=== PATIENT | female | born 1990 | race Caucasian/White ===

== ENCOUNTER 2024-08-02 09:41 | Outpatient (AMB) | payer OTHER, SELFPAY ==
--- NOTE | 2024-08-02 09:47 | A.OFFPC_ITS ---
Vital Signs 08/02/24 09:52 Height 5 ft 5 in Weight 157 lb 2 oz BMI 26.1 BP 94/60 Blood Pressure Location Lt brachial Position Sitting Respiration 16 Pulse 79 Pulse Source Pulse Oximeter Temp 97.9 F Temp Source Tympanic Pulse Oximetry (%) 96 Oxygen Delivery Method Room Air Intake Visit Reasons: PATIENT CARE ASSOCIATE general check Intake Note: establish care Allergies No Known Allergies Allergy (Verified 08/02/24 09:47) Medication List - Last Reconciled 08/02/24 by Jerry Hahn MD No Known Home Meds Tobacco use date assessed: 08/02/24 Dental Screening Dental Screen Date: 08/02/24 Did you have a dental visit in the last 12 months?: Yes Did you have a dental problem in the last 6 months where you did not have access to dental care?: No Was dental information given to patient?: Patient has dentist HPI PATIENT CARE ASSOCIATE general check HPI Details New Patient? ?? Prior PCP:?Dr Flynn [facility] Last office visit/CPE:?May Checkup. Jul 2023 Acute issue(s):? Concern of HLD & NT ProBNP ordered due to FamHx heart disease LE: Edema ?? PMHx:?HLD, IBS, Acid reflux, SurgHx:? FHx:? Mom: Leaky heart valve Arrythmia. Low BP. Dad: HTN, HLD, DE age 67. GM: Lung CA, Cervical CA. GF Alz SocHx:? Nonsmoker, EtOH: None. 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 1. Little interest or pleasure in doing things: not at all 2. Feeling down, depressed, or hopeless: not at all 3. Trouble falling or staying asleep, or sleeping too much: not at all 4. Feeling tired or having little energy: not at all 5. Poor appetite or overeating: not at all 6. Feeling bad about yourself - or that you are a failure or have let yourself or your family down: not at all 7. Trouble concentrating on things, such as reading the newspaper or watching television: not at all 8. Moving or speaking so slowly that other people could have noticed. Or the opposite - being so fidgety or restless that you have been moving around a lot more than usual: not at all 9. Thoughts that you would be better off or of hurting yourself in some way: not at all Total score: 0 Depression Screening Interpretation: Negative Depression Screening Done: Yes 35630 - PHQ-9 Billing: Yes Source: Developed by Drs. Jimmy Lou, Radha Ying, Philip Caban and colleagues, with an educational ryan from [email or web address] Thrive Questionnaire Date Thrive assessed: 08/02/24 I am a: Patient What is your living situation today?: I have a steady place to live Within the past 12 months, did the food you bought not last and you didn't have the money to get more?: Never true Within the past 12 months, did you worry whether your food would run out before you got money to buy more?: Never true Do you have trouble paying for medicines?: No Do you have trouble getting transportation to medical appointments?: No Do you have trouble paying your heating and electricity bill?: No Do you have trouble taking care of your child, family member or friend?: No Do you have trouble with day-to-day activities such as bathing, preparing meals, shopping, managing finances, etc.?: No Are you currently unemployed and looking for a job?: No Are you interested in more education?: No Please select the resources that you would like help with: None Currently or been in a relationship where the following occur: No concerns reported THRIVE Score: 0 AUDIT C Alcohol Use Questionnaire (AUDIT-C) 1. How often do you have a drink containing alcohol?: Never 3. How often do you have six or more drinks on one occasion?: Never Total Score: 0 ROOSEVELT-7 AMB Questionnaire ROOSEVELT-7 Date ROOSEVELT - 7 assessed: 08/02/24 Feeling nervous, anxious, or on edge: 0 = Not at all Not being able to stop or control worryin = Not at all Worrying too much about different things: 0 = Not at all Trouble relaxin = Not at all Being so restless that it is hard to sit still: 0 = Not at all Becoming easily annoyed or irritable: 0 = Not at all Feeling afraid as if something awful might happen: 0 = Not at all Total ROOSEVELT-7 score (0-4 normal; 5-9 mild; 10-14 moderate; 15-21 severe): 0 Source: Developed by Drs. Jimmy Lou, Radha Ying, Philip Caban and colleagues, with an educational ryan from [email or web address]. ROOSEVELT-7 Assessment Billing ROOSEVELT-7 Assessment Tool: ROOSEVELT-7 Assessment 82150 Review of Systems Const Denies chills, Denies fatigue, Denies fever(s), Denies headache(s) and Denies weakness ENT Denies dizziness and Denies headache(s) Card Denies chest pain, Denies lightheadedness, Denies dyspnea and Denies other (Palpitations) Resp Denies cough, Denies dyspnea, Denies wheezing and Denies other ( shortness of breath) Musc Denies numbness and Denies tingling Neuro Denies dizziness, Denies headache(s), Denies numbness, Denies tingling, Denies paresthesias and Denies weakness Psych Denies anxiety and Denies depression Endo Denies fatigue Aller/Immun Denies wheezing Physical exam (Primary Care) Vital Signs: Last Vital Signs Temp 97.9 F 08/02/24 09:52 Pulse 79 08/02/24 09:52 Resp 16 08/02/24 09:52 BP 94/60 08/02/24 09:52 Pulse Ox 96 08/02/24 09:52 Oxygen Delivery Method Room Air 08/02/24 09:52 BMI result Body Mass Index 26.1 Tobacco/Smoking Status: Tobacco use Status Tobacco use date assessed 08/02/24 08/02/24 09:49 Patient Tobacco Use Status Never used Tobacco 08/02/24 09:49 e-Cigarette/Vaping Use Never Used 08/02/24 09:49 PHQ-9: PHQ-9 Score PHQ-9: Total score 0 08/02/24 10:00 Depression Screening Interpretation: Negative Thrive Assessment: Date of Thrive Assessment Date Thrive assessed 08/02/24 08/02/24 09:52 Currently or been in a relationship where the following occur: No concerns reported Const General: no acute distress and well developed Nutritional Appearance: well nourished Orientation/consciousness: patient oriented x3 HENMT Head: Yes normocephalic and Yes atraumatic Eyes General: appearance normal, both eyes and all related structures Pupils: Equal, round and reactive pupils present EOM: EOMs intact bilaterally Resp Effort & Inspection: normal respiratory effort Auscultation: clear to auscultation bilaterally Cardio Rate: regular rate Rhythm: regular rhythm Heart sounds: S1 normal heart sound present, S2 normal heart sound present, no gallops, no murmurs and no rubs Neuro General: patient oriented x3 and gait normal Cranial nerves: Yes Equal, round and reactive pupils present Psych Affect: normal affect Assessment and Plan Assessment & Plan (1) High cholesterol: Code(s): E78.00 - Pure hypercholesterolemia, unspecified Plan: Patient?with?strong?family?history?of?coronary?artery?disease?and?valvular ?disease?as?well?as?history?of?hyperlipidemia. Check?labs EKG?shows: ?Normal?sinus?rhythm,?normal?axis,?normal?intervals,?no?hypertrophy,?no?ST-T-wav e?changes; normal?EKG (2) Family history of heart disease: Code(s): Z82.49 - Family history of ischemic heart disease and other diseases of the circulatory system Plan: As?above (3) Hemorrhoids: Code(s): K64.9 - Unspecified hemorrhoids Plan: Hydrate?well - keep?stools?soft Soluble?fiber (4) IBS (irritable bowel syndrome): Code(s): K58.9 - Irritable bowel syndrome without diarrhea Plan: Hydrate?well Soluble?fiber (5) GERD (gastroesophageal reflux disease): Code(s): K21.9 - Gastro-esophageal reflux disease without esophagitis Plan: Avoid?trigger?foods Can?use?omeprazole?if?frequent?symptoms (6) Laboratory exam ordered as part of routine general medical examination: Code(s): Z00.00 - Encounter for general adult medical examination without abnormal findings Plan: Check?lab Orders: Orders Comprehensive Parrott. Panel Fast Today Z00.00 - Encounter for general adult medical examination without abnormal findings Lipid Panel Today Z00.00 - Encounter for general adult medical examination without abnormal findings TSH reflex Free T4 Today Z00.00 - Encounter for general adult medical examination without abnormal findings UA and rflx microscopic Today Z00.00 - Encounter for general adult medical examination without abnormal findings Hepatitis B,C Profile Today Z11.3 - Encounter for screening for infections with a predominantly sexual mode of transmission NT-proBNP Today Z82.49 - Family history of ischemic heart disease and other diseases of the circulatory system AMB EKG-In Office Today E78.00 - Pure hypercholesterolemia, unspecified Microalbumin, Random (w Creat) Today I10 - Essential (primary) hypertension CT NG by PCR Today Z11.3 - Encounter for screening for infections with a predominantly sexual mode of transmission HIV Ab/Ag Today Z11.3 - Encounter for screening for infections with a predominantly sexual mode of transmission Syphilis Screen Today Z11.3 - Encounter for screening for infections with a predominantly sexual mode of transmission Coding Level of Care Code New Pt Level 3 (16159) Diagnoses High cholesterol E78.00 Family history of heart disease Z82.49 Hemorrhoids K64.9 IBS (irritable bowel syndrome) K58.9 GERD (gastroesophageal reflux disease) K21.9 Laboratory exam ordered as part of routine general medical examination Z00.00 Additional Codes ROOSEVELT-7 Assessment Billing - ROOSEVELT-7 Assessment Tool: ROOSEVELT-7 Assessment 34391 ([id number])
[2024-08-02 09:52] VITALS: BP 94/60; PULSE 79; RESP 16; TEMP 36.6; O2SAT 96; BMI 26.1
== END 2024-08-02 10:50 | disposition home or self-care (01) ==
PROVIDERS: PCP Family Medicine; Visit Provider Family Medicine
DX: E78.00 Pure hypercholesterolemia, unspecified (principal); Z82.49 Family history of ischemic heart disease and other diseases of the circulatory system; K64.9 Unspecified hemorrhoids; K58.9 Irritable bowel syndrome, unspecified; K21.9 Gastro-esophageal reflux disease without esophagitis
CPT/HCPCS: 99203

== ENCOUNTER → 2025-02-17 13:54 | Outpatient (BNVA) | payer OTHER, SELFPAY | PROVIDERS: PCP Family Medicine; Visit Provider Physician Assistant Medical | DX: Z77.21 Contact with and (suspected) exposure to potentially hazardous body fluids (principal) | CPT/HCPCS: 84450; 84460; 86706; 86803; 87389; 99203 ==

== ENCOUNTER 2025-03-14 08:45 | Outpatient (REF) | payer OTHER, SELFPAY ==
--- OUTSIDE RECORDS SUMMARY | 2025-03-14 08:52 | XMS_ITS ---
Author Organization [facility] Address [address], [place] [id number] Care Team Providers Care Sr. Manager Corporate Communications Name Role Phone BRIDGETTE CHARLES Primary Care Provider [phone] Veena De Santiago Unavailable [phone] ALLERGIES No Known Allergies REASON FOR REFERRAL Reason [facility] GI for ongo ing IBS and oily stools. Diagnosis 1 Irritable bowel synd maxwell with both constipation and diarrhea (K58.2) Diagnosis 2 Abnormal stools (R19 .5) Referral Organization [facility] Referring Provider First Name Veena Referring Provider Last Name Jonnathan Referring Provider Speciality Nurse Prac titioner Referred Organization [facility] Referred Address [address], [id number], Referred Provider Specialty Gastroentero logy General Notes MARIA TERESA CAMPBELL 07/2024 04:10:06 PM >BMP Form, Referral, OV Note and insurance information faxed to [facility] [phone]. Referral Priority Routine REASON FOR VISIT F/U OILY STOOLS MEDICATIONS Medication SIG (Take, Route, Frequency, Duration) Notes Start Date End Date Status Pimecrolimus 1 % 1 application [employer] Salesperson ally Twice a day Active Htu-Wo-Yfonpttp 0.18/0.215/0.25 MG-25 MCG 1 tablet Orally Once a day Active Vitamin D3 1.25 MG (73949 UT) 1 capsule Orally 1/wk Active Minoxidil for Men 5 % 1 mL Externally Tw ice a day Active Ashwagandha Active SOCIAL HISTORY Tobacco Use: Social History Observation Description Date Details (start date - stop date) Never Smoker NA - NA Sex Assigned At : Social History Observation Description Sex Assigned At Female Household Question Answer Notes Marital status: Tobacco Use/Smoking Question Answer Notes Tobacco use: nonsmoker Sexual History Question Answer Notes Had sex in the past 12 months (vaginal, oral, or anal)? Yes with Men only Use protection? No Section Notes: She enjoys aleah, hiking, a nd going for walks VITAL SIGNS Blood pressure systolic 102 mm Hg 03/27/20 24 Blood pressure diastolic 62 mm Hg 024 Heart Rate 72 /min 03/27/2024 Height 65 in 03/27/2024 Weight 158.2 lbs 03/27/2024 BMI 26.32 kg/m2 03/27/2024 Oximetry 98 % 03/27/2024 Height-cm 165.1 cm 03/27/2024 Weight-kg 71.76 kg 03/27/2024 Encounters Encounter [facility] Date [facility] [address] [place], [place] [address]R[place]y [place], [place] [id number] 03/27/2024 Veena De Santiago Irritable bowel syndrome with both constipation and diarrhea K58.2 and Abnormal stools R19.5 ASSESSMENTS Encounter Date Diagnosis Assessment Notes Treatment Notes Treatment Clinical Notes Section Notes 03/27/2024 Irritable bowel syndrome with both constipation and diarrhea (ICD-10 - K58.2) Keep diary of events to try to pinpoint possible triggers 03/27/2024 Abnormal stools (ICD-10 - R19.5) Pre-ProBiotic Increase fiber- take Psyllium Fiber supplements Keep diary of abnormal stools and possible triggers Will refer to GI given long standing history Jahaira will be transitioning to a [facility] PCP office in July due to the office changing their model at this time 03/27/2024 Other Total time spen t with patient 20 minutes which includes face to face visit, education and coordination of care. PLAN OF TREATMENT Treatment Notes Assessment Notes Irritable bowel syndrome wit h both constipation and diarrhea Keep diary of events to try to pinpoint possible triggers Abnormal stools Pre-ProBiotic Increase fiber- take Psyllium Fiber supplements Keep diary of abnormal stools and possible triggers Will refer to GI given long standing history Jahaira will be transitioning to a [facility] PCP office in July due to the office changing their model at this time Other Total time spent wit h patient 20 minutes which includes face to face visit, education and coordination of care. Referrals Referral Date Details [facility] GI for ongo ing IBS and oily stools. , [address] [place], [place] [address]ANG[place]A [place], [phone], [email or web address], Next Appt Details Follow Up: --, Reason: New P CP in July Progress Notes * JAHAIRA FAIRBANKSDOB: [birth year] (33 yo F)Acc No.[id number]:03/27/2024 Progress Notes Patient:??JAHAIRA FAIRBANKS Provider:??Veena De Santiago DNP :1990?Age:33 Y?Sex:Fe male Date:03/27/2024 Phone: Address:[address] [place] [phone] Pcp:BRDIGETTE CHARLES Subjective: * Chief Complaints: * ?F/U OILY STOOLS * HPI: ?Patient Care Team:? Providers- Secretarial Teacher- Jahaira Thayerld ?GYNO - Dr Hart. ?Visit info:? Jahaira presents today c/o oily stools - started in January and would present randomly with BM. No issues this past week. She had been taking supplements with increased Biotin, had increased consumption of nuts but no other real changes with diet. She changed the supplement about 2 wks ago to Viviscol BID. ?She does note history of oily stools in past, but would usually only occur with fatty foods, chicken skin, etc. This occurrance was not the norm and lasted for a longer duration. ?She notes that she does have an extensive history of IBS- never had a colonoscopy. She states that she has had increased stress lately, that may be contributing. Liver enzyme labs within range- denies significant abdominal pain, nausea, or heartburn. * ROS:?Reviewed. * Medical History:?? * Telephonic Nurse History:??Menstrual hist ory:??LMP:??03/13/2024,?Age of Menarche:??12.??Sexually Transmitted Diseases (STDs)??Human papilloma virus (HPV)/condyloma.??Last pap smear date??Oct 2022.??Abnormal pap smear??Oct 2022 HPV.??Last mammogram date??Had one at 16 yo, lump in breast, neg per pt.?? * OB History:?? Histo ry:??Total pregnancies:??0.?? * Surgical History:??[place] [facility] * Hospitalization/Major Diagno stic Procedure:?? * Family History:??Father: dec eased 67 yrs, hypertension, hyperlipidemia, heart attack , depression, alcoholism, sudden cardiac .??Mother: alive, osteoporosis, depression.??Paternal Grandfather: 71 yrs, Alzheimer's dementia.??Paternal Grandmother: 69 yrs, mac -1 blood disease, diagnosed with Type 2 diabetes mellitus without complication, unspecified whether senior living insulin use.??Maternal Grandfather: 98 yrs, hypertension, kidney stones.??Maternal Grandmother: 70 yrs, lung cancer , cervical cancer.??Brother: alive.??1 brother(s) - healthy. .?? * Social History:?Tobacco Use:??Tobacco Use/Smoking??Tobacco use:??nonsmoker.?Sexual History:??Sexual History??Had sex in the past 12 months (vaginal, oral, or anal)???Yes,??with??Men only,??Use protection???No.?Drugs/Alcohol:??Drugs??Have you used drugs other than those for medical reasons in the past 12 months???No.??Do you smoke marijuana?: Denies. Do you drink alcohol?: No. ?Household:??Household??Marital status:??,??Any household pets???Yes.?Miscellaneous:??Exercise: three times a week, for 30-60 minutes a day. 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 ?She enjoys aleah, hiking, and going for walks. * [facility]ations:[facility] 1.25 MG (47262 UT) Capsule 1 capsule Orally , Notes to Pharmacist: 1/wkMinoxidil for Men 5 % Solution 1 mL Externally Twice a day Pimecrolimus 1 % Cream 1 application Externally Twice a day Yfk-Lg-Bpxwwbdi 0.18/0.215/0.25 MG-25 MCG Tablet 1 tablet Orally Once a day Medication List reviewed and reconciled with the patientTaking Nichole Taking Vitamin D3 1.25 MG (39393 UT) Capsule 1 capsule Orally , Notes to Pharmacist: 1/wkTaking Minoxidil for Men 5 % Solution 1 mL Externally Twice a day Taking Pimecrolimus 1 % Cream 1 application Externally Twice a day Taking Yuz-Ly-Fbvorofk 0.18/0.215/0.25 MG-25 MCG Tablet 1 tablet Orally Once a day Medication List reviewed and reconciled with the patient * Allergies:??N.K.D.A.no[Aller gies Verified] Objective: * Vitals:??BP:102/62mm Hg, HR: 72/min, Oxygen sat %:98%, Wt:158.2lbs, Wt-k.76 kg, Ht: 65 in, Ht-cm: 165.1 cm, BMI:26.32Index, Body Surface Area: 1.81. * Examination: ?General Examination: ?General appearance: no acute distress, speaking full sentences, thoughts clear and appropriate. ? Head: normocephalic, atraumatic. ? Eyes: sclera anicteric. ? Oral cavity: with good dentition, tongue is midline. ? Lungs: non-labored breathing, no audible shortness of breath or wheezing. ? Neurologic: alert and oriented, cooperative with exam. ? Psych: with good judgement and insight, speech is clear and coherent, normal affect / mood. Assessment: * Assessment: 1.??Irritable bowel syndrome with both constipation and diarrhea - K58.2 (Primary)??2.??Abnormal stools - R19.5?? Plan: * Treatment: 2.??Abnormal stools?? Notes: Pre-ProBiotic Increase fiber- take Psyllium Fiber supplements Keep diary of abnormal stools and possible triggers Will refer to GI given long standing history Jahaira will be transitioning to a [facility] PCP office in July due to the office changing their model at this time? Referral To:Gastroenterology ?Reason:[facility] GI for ongoing IBS and oily stools. 3.??Others?? Notes: Total time spent with patient 20 minutes which includes face to face visit, education and coordination of care.? * Procedure Codes:?? * Preventive Medicine:?Last - 2019; 01/27/23 @ [facility] Colonoscopy- nvr Endo- nvr Covid vac- yes Flu shot- no 01/21/23: Vitamin D 14; insulin 6.7; glucose 84; Tcol 232; HDL 50; LDL 157; trigs 54; APO B 116 05/05/23: Vitamin D 97; glucose 68; Tcol 166; HDL 56; LDL 94; trigs 71; APO B 86; NTPROBNP 168; hsCRP 2.1. * Follow Up:??-- (Reason: New PCP in July) * Billing Information: * Visit Code:?? 88491 Office Visit, Est Pt., Level 3. * Procedure Codes:?? * Sign off status: Completed true * Provider:??Veena De Santigao DNP Date:??06/2024 History and Physical Notes * HPI (History of Present Illness) Category Sub-Category Detail Notes Category Not es Patient Care Team Providers- Secretarial Teacher- Jahaira Osullivan [facility] GYNO - Dr Hart Examination Category Sub-Category Detail Notes Category Not es General Examination General appearance: no acute distress, speaking full sentences, thoughts clear and appropriate. Head: normocephalic, atraumatic. Eyes: sclera anicteric. Oral cavity: with good dentition, tongue is midline. Lungs: non-labored breathing, no audible shortness of breath or wheezing. Neurologic: alert and oriented, cooperative with exam. Psych: with good judgement and insight, speech is clear and coherent, normal affect / mood. Consultation Request Notes Referral Date Referring Provider Referred Provider Not es 03/27/2024 Veena De Santiago [facility] f or ongoing IBS and oily stools.
--- OUTSIDE RECORDS SUMMARY | 2025-03-14 08:52 | XMS_ITS ---
Author Organization [facility] Address [address], [place] [phone] Care Team Providers Care Sharepoint Application Developer Name Role Phone BRIDGETTE CHARLES Primary Care Provider Veena De Santiago [phone] REASON FOR VISIT CPE SOCIAL HISTORY Sex Assigned At : Social History Observation Description Sex Assigned At Female Encounters Encounter Location Date Provider Diagnosis [facility] [address], [place] [phone] 06/06/2024 Veena De Santiago PLAN OF TREATMENT No Information Progress Notes * TIKI, AMTEVINDOB: [birth year] (34 yo F)Acc No.[id number]:06/06/2024 Progress Note Patient:??TIKI JAHAIRA Provider:??Veena De Santiago DNP :1990?Age:33 Y?Sex:Fe male Date:06/06/2024 Phone: Address:[address] [place] [phone] Pcp:BRIDGETTE CHARLES Subjective: * Chief Complaints: * ?1. CPE. * Medical History:?? Objective: Assessment: Plan: * Treatment: Care Plan: * Problems:?? * Billing Information: * Visit Code:?? * Procedure Codes:?? * Sign off status: Pending * Provider:??Veena De Santiago DNP Date:??
--- OUTSIDE RECORDS SUMMARY | 2025-03-14 08:52 | XMS_ITS ---
Author Organization [facility] Address [address] [place] [phone] Care Team Providers Care Culvert Installer Name Role Phone BRIDGETTE CHARLES Primary Care Provider [phone] Veena De Santiago [phone] ALLERGIES No Known Allergies REASON FOR VISIT CPE SOCIAL HISTORY Tobacco Use: Social History Observation [...] aleah, hiking, a nd going for walks Encounters Encounter Location Date Provider Diagnosis [address] [id number] 01/23/2024 Veena De Santiago PLAN OF TREATMENT No Information Progress Notes * JAHAIRA FAIRBANKSDOB: [birth year] (34 yo F)Acc No.[id number]:01/23/2024 Progress Note Patient:??TIKIMARIA DJAHAIRA Provider:??Veena De Santiago DNP :1990?Age:33 Y?Sex:Fe male Date:01/23/2024 Phone: Address:[address] [place] [id number] Pcp:BRIDGETTE CHARLES Subjective: * Chief Complaints: * ?1. CPE. * HPI: ?Patient Care Team:? Providers- Cigarette Machine Operator- Jahaira Osullivan [place] ?GYNO - Dr Hart. * Medical History:??Anxiety, D epression, HPV, Periooral dermatitis, Gastroesophageal reflux disease, Irritable bowel syndrome. * Lab Rep History:??Menstrual hist ory:??LMP:??11/22/2023,?Age of Menarche:??12.??Sexually Transmitted Diseases (STDs)??Human papilloma virus (HPV)/condyloma.??Last pap smear date??Oct 2022.??Abnormal pap smear??Oct 2022 HPV.??Last mammogram date??Had one at 16 yo, lump in breast, neg per pt.?? * OB History:?? Histo ry:??Total pregnancies:??0.?? * Surgical History:??[place] [facility] . * Hospitalization/Major Diagno stic Procedure:??Denies Past Hospitalization. * Family History:??Father: dec eased 67 yrs, hypertension, hyperlipidemia, heart attack , depression, alcoholism, sudden cardiac .??Mother: alive, osteoporosis, depression.??Paternal Grandfather: 71 yrs, Alzheimer's dementia.??Paternal Grandmother: 69 yrs, mac -1 blood disease, diagnosed with Type 2 diabetes mellitus without complication, unspecified whether regional intermodal truck driver insulin use.??Maternal Grandfather: 98 yrs, hypertension, kidney [...] 30-60 minutes a day. 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 ?She enjoys aleah, hiking, and going for walks. * Allergies:??N.K.D.A. Objective: Assessment: Plan: * Treatment: * Preventive Medicine:?Last 2019; 01/27/23 @ [facility] Colonoscopy- nvr Endo- nvr Covid vac- yes Flu shot- no 01/21/23: Vitamin D 14; insulin 6.7; glucose 84; Tcol 232; HDL 50; LDL 157; trigs 54; APO B 116 05/05/23: Vitamin D 97; glucose 68; Tcol 166; HDL 56; LDL 94; trigs 71; APO B 86; NTPROBNP 168; hsCRP 2.1. Care Plan: * Problems:?? * Billing Information: * Visit Code:?? * Procedure Codes:?? * Sign off status: Pending * Provider:??Veena De Santiago DNP Date:??03/2024 History and Physical Notes * HPI (History of Present Illness) Category Sub-Category Detail Notes Category Not es Patient Care Team Providers- Cigarette Machine Operator- Jahaira Osullivan [facility] GYNO - Dr Hart
--- OUTSIDE RECORDS SUMMARY | 2025-03-14 08:52 | XMS_ITS | Patient Health Record ---
Author Organization [facility] Address [address] [place], [place] [phone] Care Team Providers Care Insulation Board Head Saw Operator Name Role Phone BRIDGETTE CHARLES Primary Care Provider Veena De Santiago Unavailable [phone] ALLERGIES No Known Allergies REASON FOR REFERRAL Reason [facility] GI for ongo ing IBS and oily stools. Diagnosis 1 Irritable bowel synd maxwell with both constipation and diarrhea (K58.2) Diagnosis 2 Abnormal stools (R19 .5) Referral Organization [facility] Referring Provider First Name Veena Referring Provider Last Name Jonnathan Referring Provider Speciality Nurse Prac titioner Referred Organization [facility] Referred Address [address] [place], [place],[phone], Referred Provider Specialty Gastroentero logy General Notes MARIA TERESA CAMPBELL 05/0 07/2024 04:10:06 PM >BMP Form, Referral, OV Note and insurance information faxed to [facility] [phone]. Referral Priority Routine MEDICATIONS Medication SIG (Take, Route, Frequency, Duration) Notes Start Date End Date Status Pimecrolimus 1 % 1 application Provider Network Mgr ally Twice a day Active Dit-Np-Rgtrswiu 0.18/0.215/0.25 MG-25 MCG 1 tablet Orally Once a day Active Vitamin D3 1.25 MG (15981 UT) 1 capsule Orally 1/wk Active Minoxidil [...] aleah, hiking, a nd going for walks She enjoys aleah, hiking, a nd going for walks She enjoys aleah, hiking, a nd going for walks She enjoys aleah, hiking, a nd going for walks She enjoys aleah, hiking, a nd going for walks She enjoys aleah, hiking, a nd going for walks PROBLEMS Problem Type ICD Code Onset Dates Problem Status W/U Status Risk SNOMED Code Notes Problem Mixed hyperlipidemia (E78.2) Active confirmed 484570133 Problem Other headache syndrome (G44.89) Active confirmed 592067797 Problem Other fatigue (R53.83) Active confirmed 89579046 Problem Vitamin D deficiency (E55.9) Active confirmed 77695214 Problem Gastroesophageal reflux disease without esophagitis (K21.9) Active confirmed 589767926 Problem Irritable bowel syndrome with both constipation and diarrhea (K58.2) Active confirmed 73894968 Problem 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) Active confirmed 636601056 VITAL SIGNS Heart Rate 72 /min 03/27/2024 Height-cm 165.1 cm 03/27/2024 Oximetry 98 % 03/27/2024 Blood pressure diastolic 62 mm Hg 03/27/2024 Weight-kg 71.76 kg 03/27/2024 Height 65 in 03/27/2024 Blood pressure systolic 102 mm Hg 03/27/2024 Weight 158.2 lbs 03/27/2024 BMI 26.32 kg/m2 03/27/2024 Encounters Encounter Location Date Provider Diagnosis [address] [id number] 06/06/2024 Veena De Santiago [address] [id number] 03/27/2024 Veena De Santiago Irritable bowel syndrome [...] history Jahaira will be transitioning to a [facility] PCP office in July due to the office changing their model at this time 03/27/2024 Other Total time spen t with patient 20 minutes which includes face to face visit, education and coordination of care. PLAN OF TREATMENT Future Test Test Name Order Date LIPID PANEL, STANDARD (7600) 05/21/2023 COMPREHENSIVE METABOLIC PANEL (11955) CBC (INCLUDES DIFF/PLT) (6399) HS CRP (16467) 05/21/2023 APOLIPOPROTEIN B (5224) 05/21/2023 VITAMIN D,25-OH,TOTAL,IA (29101) 023 B TYPE NATRIURETIC PEPTIDE (BNP) (30372) 05/21/2023 Insurance Providers Payer Name Payer Address Payer Phone Subscriber Number Group Number Insured Name Patient Relationship to Insured Coverage Start Date Coverage End Date [address] [place], [place] [phone] [id number] JAHAIRA FAIRBANKS Self - patient is the insured MEDICAL (GENERAL) HISTORY Medical History History ICD Code anxiety depression HPV periooral dermatitis gastroesophageal reflux disease irritable bowel syndrome Surgical History Surgery Date(Month/Year) [place]
[2025-03-14 10:48] LABS: Creatinine Urine 141.12 mg/dL; Microalbum/Creatinine Ratio Ur 3.5 ug/mg cr (<30)
[2025-03-14 10:52] LABS: Appearance Urine Clear; Color Urine Yellow; Glucose Urine UA Negative (Negative); Leukocyte Esterase Urine Negative (Negative); Nitrite Urine Negative (Negative); Specific Gravity - Urine 1.025 (1.005-1.025); Urine Blood Negative (Negative); Urine Ketones Negative (Negative); Urine Protein Negative (Neg-Trace)
[2025-03-14 11:06] LABS: Syphilis Screen Nonreactive (Nonreactive)
[2025-03-14 11:07] LABS: HBS Num1 384.14 mIU/mL (0-7.99); HBc Num1 0.16 S/CO (0.00-0.79); HBsAGNum1 0.32 S/CO (0.00-0.99); HIV AB/AG Nonreactive (Nonreactive); HIV Num 1 0.05 S/CO (0.00-0.99); Hepatitis B Core Antibody Nonreactive (Nonreactive); Hepatitis B Surface Antigen Negative (Negative); ~HepC Num1 0.11 S/CO (0.00-0.79); ~Hepatitis B Surface Antibody REACTIVE (Nonreactive); ~Hepatitis C Antibody Nonreactive (Nonreactive)
[2025-03-14 11:11] LABS: Alanine Aminotransferase 11 U/L (0-31); Alkaline Phosphatase 40 U/L (39-117); Anion Gap 10 (12-20); Aspartate Amino Transferase 17 U/L (5-31); Bilirubin Total 0.4 mg/dL (0.0-1.0); Blood Urea Nitrogen 19 mg/dL (9-16); Calcium 9.2 mg/dL (8.4-10.2); Carbon Dioxide 26 mmol/L (22-29); Chloride 107 mmol/L (96-108); Cholesterol 205 mg/dL (<200); Estimated Glomerular Filt Rate > 60; Glucose Fasting 94 mg/dL (60-99); HDL Cholesterol 53 mg/dL (>40); LDL Cholesterol Calculated 137 mg/dL (<100); Potassium 4.4 mmol/L (3.3-5.1); Sodium 139 mmol/L (135-145); TSH reflex Free T4 1.62 uIU/mL (0.32-4.0); Total Protein 6.7 g/dL (6.5-8.0); Triglycerides 79 mg/dL (<150)
[2025-03-16 02:43] LABS: NT-proBNP 135 pg/mL (<125)
== END 2025-03-14 08:46 | disposition home or self-care (01) ==
LOC: HO.WFDLDS 08:45
PROVIDERS: Visit Provider Family Medicine
DX: Z00.00 Encounter for general adult medical examination without abnormal findings (principal); I10 Essential (primary) hypertension; Z11.3 Encounter for screening for infections with a predominantly sexual mode of transmission; Z82.49 Family history of ischemic heart disease and other diseases of the circulatory system
CPT/HCPCS: 36415; 80053; 80061; 81003; 82043; 82570; 83880; 84443; 86704; 86706; 86780; 86803; 87340; 87389

== ENCOUNTER 2025-03-21 15:39 | Outpatient (AMB) | payer OTHER, SELFPAY ==
--- OUTSIDE RECORDS SUMMARY | 2025-03-21 15:42 | XMS_ITS ---
Author Organization [facility] Address [address] [place], [place] [phone] Care Team Providers Care Guillotine Operator Name Role Phone BRIDGETTE CHARLES Primary Care Provider Veena De Santiago [phone] REASON FOR VISIT CPE SOCIAL HISTORY Sex Assigned At : Social History Observation Description Sex Assigned At Female Encounters Encounter Location Date Provider Diagnosis [facility] [address] [place], [place] [phone] 06/06/2024 Veena De Santiago PLAN OF TREATMENT No Information Progress Notes * TIKIJAHAIRA DURANDDOB: [birth year] (34 yo F)Acc No.[id number]:06/06/2024 Progress Note Patient:??TIKI JAHAIRA Provider:??Veena De Santiago DNP :1990?Age:33 Y?Sex:Fe male Date:06/06/2024 Phone: Address:[address] [place] [phone] Pcp:BRIDGETTE CHARLES Subjective: * Chief Complaints: * ?1. CPE. * Medical History:?? Objective: Assessment: Plan: * Treatment: Care Plan: * Problems:?? * Billing Information: * Visit Code:?? * Procedure Codes:?? * Sign off status: Pending * Provider:??Veena De Santiago DNP Date:??
--- OUTSIDE RECORDS SUMMARY | 2025-03-21 15:42 | XMS_ITS | Patient Health Record ---
Author Organization [facility] Address [address] [place], [place] [phone] Care Team Providers Care Drill Hand Name Role Phone BRIDGETTE CHARLES Primary Care Provider Veena De Santiago Unavailable [phone] ALLERGIES No Known Allergies REASON FOR REFERRAL Reason [facility] for ongo ing IBS and oily stools. Diagnosis 1 Irritable bowel synd maxwell with both constipation and diarrhea (K58.2) Diagnosis 2 Abnormal stools (R19 .5) Referral Organization [facility] Referring Provider First Name Veena Referring Provider Last Name Jonnathan Referring Provider Speciality Nurse Prac titioner Referred Organization [facility] Referred Address [address] [place], [phone], Referred Provider Specialty Gastroentero logy General Notes MARIA TERESA CAMPBELL 05/0 07/2024 04:10:06 PM >BMP Form, Referral, OV Note and insurance information faxed to [facility] [phone]. Referral Priority Routine MEDICATIONS Medication SIG (Take, Route, Frequency, Duration) Notes Start Date End Date Status Pimecrolimus 1 % 1 application Bottom Turner ally Twice a day Active Xvd-Bg-Axlbpwtn 0.18/0.215/0.25 MG-25 MCG 1 tablet Orally Once a day Active Vitamin D3 1.25 MG (73693 UT) 1 capsule Orally 1/wk Active Minoxidil [...] Notes Problem Mixed hyperlipidemia (E78.2) Active confirmed 631150715 Problem Other headache syndrome (G44.89) Active confirmed 462983637 Problem Other fatigue (R53.83) Active confirmed 52978204 Problem Vitamin D deficiency (E55.9) Active confirmed 24562986 Problem Gastroesophageal reflux disease without esophagitis (K21.9) Active confirmed 781631615 Problem Irritable bowel syndrome with both constipation and diarrhea (K58.2) Active confirmed 21696121 Problem 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) Active confirmed 052199432 VITAL SIGNS Heart Rate 72 /min 03/27/2024 Height-cm 165.1 cm 03/27/2024 Oximetry 98 % 03/27/2024 Blood pressure diastolic 62 mm Hg 03/27/2024 Weight-kg 71.76 kg 03/27/2024 Height 65 in 03/27/2024 Blood pressure systolic 102 mm Hg 03/27/2024 Weight 158.2 lbs 03/27/2024 BMI 26.32 kg/m2 03/27/2024 Encounters Encounter Location Date Provider Diagnosis [address] [id number] 06/06/2024 Veena De Santiago [address] [id number] 03/27/2024 Veena De Santiago Irritable bowel syndrome [...] history Jahaira will be transitioning to a [facility] PCP office in July due to the office changing their model at this time 03/27/2024 Other Total time spen t with patient 20 minutes which includes face to face visit, education and coordination of care. PLAN OF TREATMENT Future Test Test Name Order Date LIPID PANEL, STANDARD (7600) 05/21/2023 COMPREHENSIVE METABOLIC PANEL (63869) CBC (INCLUDES DIFF/PLT) (6399) HS CRP (64330) 05/21/2023 APOLIPOPROTEIN B (5224) 05/21/2023 VITAMIN D,25-OH,TOTAL,IA (16674) 023 B TYPE NATRIURETIC PEPTIDE (BNP) (60573) 05/21/2023 Insurance Providers Payer Name Payer Address Payer Phone Subscriber Number Group Number Insured Name Patient Relationship to Insured Coverage Start Date Coverage End Date [address] [place], [place] [phone] [id number] JAHAIRA FAIRBANKS Self - patient is the insured MEDICAL (GENERAL) HISTORY Medical History History ICD Code anxiety depression HPV periooral dermatitis gastroesophageal reflux disease irritable bowel syndrome Surgical History Surgery Date(Month/Year) [place]
--- OUTSIDE RECORDS SUMMARY | 2025-03-21 15:42 | XMS_ITS ---
Author Organization [facility] Address [address] [place] [id number] Care Team Providers Care Software Architect Name Role Phone BRIDGETTE CHARLES Primary Care Provider Veena De Santiago [phone] ALLERGIES No Known Allergies REASON FOR VISIT [...] walks Encounters Encounter Location Date Provider Diagnosis [address] [id number] 01/23/2024 Veena De Santiago PLAN OF TREATMENT No Information Progress Notes * JAHAIRA FAIRBANKSDOB: [birth year] (34 yo F)Acc No.[id number]:01/23/2024 Progress Note Patient:??TIKIMARIA DJAHAIRA Provider:??Veena De Santiago DNP :1990?Age:33 Y?Sex:Fe male Date:01/23/2024 Phone: Address:[address] [place] [phone] Pcp:BRIDGETTE CHARLES Subjective: * Chief Complaints: * ?1. CPE. * HPI: ?Patient Care Team:? Providers- Hardwood Floor Layer- Jahaira Osullivan [place] ?GYNO - Dr Hart. * Medical History:??Anxiety, D epression, HPV, Periooral dermatitis, Gastroesophageal reflux disease, Irritable bowel syndrome. * [place] Hand History:??Menstrual hist ory:??LMP:??11/22/2023,?Age of Menarche:??12.??Sexually Transmitted Diseases (STDs)??Human papilloma virus (HPV)/condyloma.??Last pap smear date??Oct 2022.??Abnormal pap smear??Oct 2022 HPV.??Last mammogram date??Had one at 16 yo, lump in breast, neg per pt.?? * OB History:?? Histo ry:??Total pregnancies:??0.?? * Surgical History:??[place] [facility] . * Hospitalization/Major Diagno stic Procedure:??Denies Past Hospitalization. * Family History:??Father: dec eased 67 yrs, hypertension, hyperlipidemia, heart attack , depression, alcoholism, sudden cardiac .??Mother: alive, osteoporosis, depression.??Paternal Grandfather: 71 yrs, Alzheimer's dementia.??Paternal Grandmother: 69 yrs, mac -1 blood disease, diagnosed with Type 2 diabetes mellitus without complication, unspecified whether termite control representative insulin use.??Maternal Grandfather: 98 yrs, hypertension, kidney [...] 30-60 minutes a day. 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 ?She enjoys aleah, hiking, and going for walks. * Allergies:??N.K.D.A. Objective: Assessment: Plan: * Treatment: * Preventive Medicine:?Last 2019; 01/27/23 @ [facility] Colonoscopy- nvr Endo- nvr Covid [...] Category Not es Patient Care Team Providers- Hardwood Floor Layer- Jahaira Osullivan [facility] GYNO - Dr Hart
--- NOTE | 2025-03-21 16:04 | A.OFFPC_ITS ---
Vital Signs 03/21/25 16:07 Height 5 ft 5 in Weight 160 lb BMI 26.6 BP 110/70 Blood Pressure Location Rt brachial Position Sitting Respiration 14 Pulse 80 Pulse Source Pulse Oximeter Temp 98.1 F Temp Source Oral Pulse Oximetry (%) 99 Oxygen Delivery Method Room Air Intake Visit Reasons: CPE with f/u labs and health maint Intake Note: patient is scheduled for cpe Maori Liaison Adviser Required: No Is last menstrual period known: Yes Last menstrual period: 04/06/25 Post menopausal: No Patient : No Allergies No Known Allergies Allergy (Verified 03/21/25 16:06) Medication List - Last Reconciled 03/21/25 by Jerry Hahn MD No Known Home Meds Tobacco use date assessed: 03/21/25 Dental Screening Dental Screen Date: 08/02/24 Did you have a dental visit in the last 12 months?: Yes Did you have a dental problem in the last 6 months where you did not have access to dental care?: No Was dental information given to patient?: No HPI CPE with f/u labs and health maint HPI Details 34 y/o female presents for a CPE with f/ u labs and health maintenance. Labs drawn 03/14/25. Reviewed labs with pt. Triglycerides 79. TC 205. LDL 137. HDL 53. Elevated BNP level. Pt notes her she had been told her cholesterol levels had been high before in the past. Follows up with an ObGyn for her pap smears. Last pap smear about a year ago per pt. HPI Comments History of Present Illness Details Documentation assistance for Jerry Hahn MD, was provided by Jethro Bullock, Multilith Operator on 03/21/2025 at 4:45 PM EST. I, Dr. Hahn, have read, observed, and verified documentation. [facility] Social History Housing: House Patient Tobacco Use Status: Never used Tobacco e-Cigarette/Vaping Use: Never Used Second Hand Smoke Exposure: No service: No Current occupational status: employed Current occupation: [employer] Current occupational exposures/hazards: Yes Cognitive needs: No Hearing needs: No Vision needs: No Female Reproductive History Menstrual Date of last menstrual period: 04/06/25 Questionnaire PHQ-9 Over the last 2 weeks, how often have you been bothered by any of the following problems? 1. Little interest or pleasure in doing things: not at all 2. Feeling down, depressed, or hopeless: several days 3. Trouble falling or staying asleep, or sleeping too much: several days 4. Feeling tired or having little energy: several days 5. Poor appetite or overeating: several days 6. Feeling bad about yourself - or that you are a failure or have let yourself or your family down: not at all 7. Trouble concentrating on things, such as reading the newspaper or watching television: not at all 8. Moving or speaking so slowly that other people could have noticed. Or the opposite - being so fidgety or restless that you have been moving around a lot more than usual: not at all 9. Thoughts that you would be better off or of hurting yourself in some way: not at all Total score: 4 Depression Screening Interpretation: Negative Depression Screening Done: Yes 76550 - PHQ-9 Billing: Yes Source: Developed by Drs. Jimmy Lou, Radha Ying, Philip Caban and colleagues, with an educational ryan from [employer]. Thrive Questionnaire Date Thrive assessed: 03/21/25 I am a: Patient What is your living situation today?: I have a steady place to live Within the past 12 months, did the food you bought not last and you didn't have the money to get more?: Never true Within the past 12 months, did you worry whether your food would run out before you got money to buy more?: Never true Do you have trouble paying for medicines?: No Do you have trouble getting transportation to medical appointments?: No Do you have trouble paying your heating and electricity bill?: No Do you have trouble taking care of your child, family member or friend?: No Do you have trouble with day-to-day activities such as bathing, preparing meals, shopping, managing finances, etc.?: No Are you currently unemployed and looking for a job?: No Are you interested in more education?: No Please select the resources that you would like help with: None Currently or been in a relationship where the following occur: No concerns reported THRIVE Score: 0 AUDIT C Alcohol Use Questionnaire (AUDIT-C) 1. How often do you have a drink containing alcohol?: Never Total Score: 0 Score Reviewed/Action Taken: Yes ROOSEVELT-7 AMB Questionnaire ROOSEVELT-7 Date ROOSEVELT - 7 assessed: 03/21/25 Feeling nervous, anxious, or on edge: 1 = Several days Not being able to stop or control worryin = Several days Worrying too much about different things: 1 = Several days Trouble relaxin = Not at all Being so restless that it is hard to sit still: 0 = Not at all Becoming easily annoyed or irritable: 1 = Several days Feeling afraid as if something awful might happen: 0 = Not at all Total ROOSEVELT-7 score (0-4 normal; 5-9 mild; 10-14 moderate; 15-21 severe): 4 Source: Developed by Drs. Jimmy Lou, Radha Ying, Philip Caban and colleagues, with an educational ryan from [employer]. ROOSEVELT-7 Assessment Billing ROOSEVELT-7 Assessment Tool: ROOSEVELT-7 Assessment 34302 Review of Systems Const Denies chills, Denies fatigue, Denies fever(s), Denies headache(s) and Denies weakness Eyes Denies change in vision ENT Denies dizziness, Denies headache(s), Denies hearing loss, Denies nasal congestion, Denies sinus pain, Denies sinus pressure and Denies sore throat Card Denies chest pain, Denies lightheadedness, Denies dyspnea and Denies other (palpitations) Resp Denies cough, Denies dyspnea and Denies wheezing GI Denies abdominal pain, Denies melena, Denies hematochezia, Denies change in bowel habits, Denies dyspepsia and Denies nausea Denies hematuria and Denies dysuria Musc Denies abnormal gait, Denies myalgias, Denies arthralgias, Denies numbness and Denies tingling Skin/Breast Denies rash, Denies unusual bruising and Denies wounds Neuro Denies abnormal gait, Denies dizziness, Denies headache(s), Denies memory loss, Denies numbness, Denies Sensory deficit (Neuro), Denies tingling and Denies weakness Psych Denies anxiety, Denies depression and Denies memory loss Endo Denies cold intolerance, Denies fatigue, Denies heat intolerance, Denies polydipsia and Denies polyuria Eugenio/Lymph Denies easy bleeding and Denies easy bruising Aller/Immun Denies wheezing Physical exam (Primary Care) Vital Signs: Last Vital Signs Temp 98.1 F 03/21/25 16:07 Pulse 80 03/21/25 16:07 Resp 14 03/21/25 16:07 BP 110/70 03/21/25 16:07 Pulse Ox 99 03/21/25 16:07 Oxygen Delivery Method Room Air 03/21/25 16:07 BMI result Body Mass Index 26.6 Tobacco/Smoking Status: Tobacco use Status Tobacco use date assessed 03/21/25 03/21/25 16:09 Patient Tobacco Use Status Never used Tobacco 03/21/25 16:09 e-Cigarette/Vaping Use Never Used 03/21/25 16:09 PHQ-9: PHQ-9 Score PHQ-9: Total score 4 03/21/25 16:16 Depression Screening Interpretation: Negative Thrive Assessment: Date of Thrive Assessment Date Thrive assessed 03/21/25 03/21/25 16:09 Currently or been in a relationship where the following occur: No concerns reported Const General: no acute distress, well developed, alert and awake Nutritional Appearance: well nourished Orientation/consciousness: patient oriented x3 HENMT Head: Yes normocephalic and Yes atraumatic Ears: hearing grossly normal bilaterally and TM's normal bilaterally General nose exam: Normal external nose present and Normal nares present Mouth: Normal oral and palatal mucosa present and moist mucous membranes Teeth and gingiva: dentition normal Throat: Yes posterior oropharynx normal Eyes General: appearance normal, both eyes and all related structures Pupils: Equal, round and reactive pupils present and Pupil accommodation reflex normal EOM: EOMs intact bilaterally Neck Neck: Yes normal visual inspection, Yes no lymphadenopathy and Yes trachea midline Thyroid: Thyroid normal Carotids: no bruits Lymphatic: no lymphadenopathy noted Chest Chest palpation & inspection: normal inspection of the chest Resp Effort & Inspection: normal respiratory effort Auscultation: clear to auscultation bilaterally Cardio Rate: regular rate Rhythm: regular rhythm Heart sounds: S1 normal heart sound present, S2 normal heart sound present, no gallops, no murmurs (faint) and no rubs Bruits: no abdominal aortic bruits and no carotid bruits GI Palpation (GI): No Abdominal aortic bruit present, Soft to palpation, nontender, No hepatosplenomegaly present and No Rebound tenderness present Auscultation: normal bowel sounds General: Yes no CVA tenderness Back/Spine/Pelvis Back: no CVA tenderness Cervical Spine: cervical ROM normal and No Cervical spine tenderness Thoracic/Lumbar Spine: thoraco-lumbar ROM normal, No pain with thoraco-lumbar ROM, No thoracic spinal tenderness and No lumbar spinal tenderness Skin Lesions: no lesions Rashes: no rashes Trauma: no lacerations or abrasions Wounds: no wounds Nails: normal Neuro General: patient oriented x3 Cranial nerves: Yes Equal, round and reactive pupils present Cognition (Neuro): normal cognition Gait exam (Neuro): Normal gait present Motor exam (neuro): 5/5 motor strength present throughout Sensory Exam: No Sensory deficit (Neuro) Deep tendon reflexes (DTR's): Right patellar reflex intensity grade: 2+ and Left patellar reflex intensity grade: 2+ Extrem General: Yes normal to inspection and No edema Psych Appearance: grossly normal Affect: normal affect Attitude: cooperative Thought process: Normal thought process present Coding Level of Care Code Est Pt Level 3 (81020) Est Pt Prev Care 18-39y(77319) Diagnoses Adult general medical exam Z00.00 Elevated brain natriuretic peptide (BNP) level R79.89 High cholesterol E78.00 Screening for cervical cancer Z12.4 Additional Codes ROOSEVELT-7 Assessment Billing - ROOSEVELT-7 Assessment Tool: ROOSEVELT-7 Assessment 74668 ([id number]) PHQ-9 - 02562 - PHQ-9 Billing: Yes ([id number]) Assessment & Plan Assessment & Plan (1) Adult general medical exam: Code(s): Z00.00 - Encounter for general adult medical examination without abnormal findings Category: Medical Plan: 34-year-old?female?presents?for?complete?physical?exam (2) Elevated brain natriuretic peptide (BNP) level: Code(s): R79.89 - Other specified abnormal findings of blood chemistry Category: Medical Plan: Patient?notes?history?of?elevated?BNP BNP?is?mildly?elevated. Recent?EKG?was?normal Cardiac?auscultation?likely?normal; possible?faint?1/6?systolic?murmur Checking?echocardiogram Patient?also?notes?family?history?of?heart?disease (3) High cholesterol: Code(s): E78.00 - Pure hypercholesterolemia, unspecified Category: Medical Plan: LDL?cholesterol?is?elevated She?says?that?she?has?had?a?history?of?high?cholesterol?in?the?past. Encouraged?diet?lower?in?saturated?fats?and?cholesterol Will?recheck?in?a?couple?months (4) Screening for cervical cancer: Code(s): Z12.4 - Encounter for screening for malignant neoplasm of cervix Category: Medical Plan: Followed?by?Dr. Hart Has?upcoming?appointment Orders: Orders Lipid Panel Today E78.00 - Pure hypercholesterolemia, unspecified, Z00.00 - Encounter for general adult medical examination without abnormal findings CA echo transthoracic complete Today R79.89 - Other specified abnormal findings of blood chemistry, Z82.49 - Family history of ischemic heart disease and other diseases of the circulatory system Comprehensive [place]. Panel Fast Today E78.00 - Pure hypercholesterolemia, unspecified, Z00.00 - Encounter for general adult medical examination without abnormal findings B Type Natriuretic Peptide Today I50.9 - Heart failure, unspecified, R79.89 - Other specified abnormal findings of blood chemistry
[2025-03-21 16:07] VITALS: BP 110/70; PULSE 80; RESP 14; TEMP 36.7; O2SAT 99; BMI 26.6
== END 2025-03-21 16:51 | disposition home or self-care (01) ==
LOC: HO.HMCFM 15:40
PROVIDERS: PCP Family Medicine; Visit Provider Family Medicine
DX: Z00.00 Encounter for general adult medical examination without abnormal findings (principal); R79.89 Other specified abnormal findings of blood chemistry; E78.00 Pure hypercholesterolemia, unspecified

== ENCOUNTER → 2025-03-21 15:39 | Outpatient (BNVA) | payer OTHER, SELFPAY | PROVIDERS: PCP Family Medicine; Visit Provider Family Medicine | DX: Z00.00 Encounter for general adult medical examination without abnormal findings (principal); R79.89 Other specified abnormal findings of blood chemistry; E78.00 Pure hypercholesterolemia, unspecified | CPT/HCPCS: 96127 ==

== ENCOUNTER → 2025-04-18 13:02 | Outpatient (REF) | payer OTHER, SELFPAY ==
--- NOTE | 2025-04-18 13:04 | CA_ITS ---
Transthoracic Echocardiogram Patient (Last, First, Middle): Erin Elaine, Gender: Female Date of : 1990 Age: 34 Procedure Date: 04/18/2025 Procedure Type: Transthoracic Echocardiogram Location: OP Height: 165.1 cm Weight: 73.48 kg BSA: 1.81 m2 Heart Rate: 78 bpm BP: 125 / 75 mmHg Weather Teacher: COLEEN Referring MD: Jerry Hahn MD Gas Station Attendant: Cristopher Melvin MD Symptoms: R79.89 - Other specified abnormal findings of blood chemistry Study Quality: Fair ECG Rhythm: Sinus Conclusions: - Normal study Findings Left Ventricle Normal left ventricular size, thickness, and systolic function. The visually estimated ejection fraction is between 65-70%. Spectral Doppler is indicative of a normal filling pattern. Right Ventricle Normal right ventricular cavity size and systolic function. Atria Both atria are normal in size. There is no evidence of interatrial shunt. Aortic Valve Normal aortic valve structure and function. There is no aortic valve stenosis. There is no aortic valve regurgitation. Mitral Valve Normal mitral valve structure and function. There is trace mitral valve regurgitation. There is no mitral valve stenosis. Pulmonic Valve The pulmonic valve is likely normal. Tricuspid Valve Normal tricuspid valve structure. There is trace tricuspid valve regurgitation. The right ventricular systolic pressure is normal. The right ventricular systolic pressure is 18 mmHg. Normal right atrial pressure. There is no evidence of pulmonary hypertension. Great Vessels All visible segments of the aorta are normal in size. The visualized portions of the pulmonary artery and branches are normal. Venous The inferior vena cava is normal in size and collapses greater than 50% with inspiration. Pericardium/Pleural There is no evidence of pericardial effusion. Prior Study Comparison No prior study available for comparison. Measurements 2D Linear Measurements IVSd: 0.63 0.6-0.9/0.6-1.0 cm LVIDd: 4.51 3.9-5.3/4.2-5.9 cm LVIDd Index: 2.49 2.4-3.2/2.2-3.1 cm/m2 LVIDs: 2.96 2.0-3.6 cm LVPWd: 0.64 0.7-1.1 cm LA Diam: 3.20 2.7-3.8/3.0-4.0 cm LAIDs Index: 1.77 1.5-2.3 cm/m2 LV Mass: 104.90 67-162/88-224 g LV Mass Index: 57.96 43-95/49-115 g/m2 LVOT Diam: 1.90 3.0+(-)1.3 cm 2D Systolic Function EF 4C: 68.40 >55% EF 2C: 68.30 >55% EF BiP: 68.60 >55% Mitral Valve MV Pk E: 0.87 MV PK A: 0.61 MV Decel Time: 169.00 E/A: 1.40 E'Lateral: 19.80 E'Medial: 12.20 E/E' Med: 7.20 E/E' Lat: 4.40 PHT: 50.00 MVA PHT: 4.40 Decel [place]y: 5.17 Aortic Valve AoV Pk Antony: 1.58 AoV Mn Antony: 1.01 AoV VTI: 0.31 AoV Pk Grad: 10.00 Aov Mn Grad: 5.00 DREA Cont.VTI: 2.40 LVOT LVOT Pk Antony: 1.25 LVOT Mn Antony: 0.86 LVOT VTI: 0.26 LVOT Pk Grad: 6.00 LVOT Mn Grad: 3.00 LVOT Diam: 1.90 LVOT Area: 2.84 Diastolic Function MV Pk E: 0.87 MV Pk A: 0.61 E/A: 1.40 E'Medial: 12.20 E/E' Med: 7.20 E' Laterial: 19.80 E/E' Lat: 4.40 Right Ventricle TAPSE (mm): 24.20 TVS' Antony: 11.30 Tricuspid Valve TR Pk Antony: 1.92 TR Pk Grad: 15.00 RA Press: 3.00 RVSP: 18.00 Great Vessels Aorta Sinus of Valsalva: 3.20 2.0-3.5 cm Ao Asc: 3.30 2.1-3.4 cm Ao Arch: 2.60 Pulmonary Valve PV Pk Antony: 1.09 Peak PV Grad: 5.00 Updated in Other Vendor System with Status of Final Cristopher Melvin MD electronically signed on 04/19/2025 11:32:00 AM with status of Final
== END ==
LOC: HO.CARD 13:02
PROVIDERS: PCP Family Medicine; Visit Provider Family Medicine
DX: R79.89 Other specified abnormal findings of blood chemistry (principal); Z82.49 Family history of ischemic heart disease and other diseases of the circulatory system
CPT/HCPCS: 93306

== ENCOUNTER → 2025-04-18 13:04 | Outpatient (BNV) | payer OTHER, SELFPAY | PROVIDERS: PCP Family Medicine; Visit Provider Internal Medicine Cardiovascular Disease | DX: R79.89 Other specified abnormal findings of blood chemistry (principal) | CPT/HCPCS: 93306 ==

== ENCOUNTER 2025-05-16 09:25 | Outpatient (REF) | payer OTHER, SELFPAY ==
[2025-05-16 11:25] LABS: B Type Natriuretic Peptide 34 pg/mL (<100)
[2025-05-16 11:57] LABS: Alanine Aminotransferase 14 U/L (0-31); Albumin Level 4.1 g/dL (3.5-5.0); Alkaline Phosphatase 41 U/L (39-117); Anion Gap 10 (12-20); Aspartate Amino Transferase 18 U/L (5-31); Bilirubin Total 0.3 mg/dL (0.0-1.0); Blood Urea Nitrogen 16 mg/dL (9-16); Calcium 8.7 mg/dL (8.4-10.2); Carbon Dioxide 26 mmol/L (22-29); Chloride 107 mmol/L (96-108); Cholesterol 200 mg/dL (<200); Estimated Glomerular Filt Rate > 60; Glucose Fasting 93 mg/dL (60-99); HDL Cholesterol 49 mg/dL (>40); LDL Cholesterol Calculated 132 mg/dL (<100); Sodium 139 mmol/L (135-145); Total Protein 6.5 g/dL (6.5-8.0); Triglycerides 97 mg/dL (<150)
== END 2025-05-16 09:26 | disposition home or self-care (01) ==
LOC: HO.WFDLDS 09:25
PROVIDERS: Visit Provider Family Medicine
DX: Z00.00 Encounter for general adult medical examination without abnormal findings (principal); I50.9 Heart failure, unspecified; R79.89 Other specified abnormal findings of blood chemistry; E78.00 Pure hypercholesterolemia, unspecified
CPT/HCPCS: 36415; 80053; 80061; 83880

== ENCOUNTER 2025-06-02 16:18 | Outpatient (AMB) | payer OTHER, SELFPAY ==
--- NOTE | 2025-06-02 17:12 | MHC.PC.OV ---
Vital Signs 06/02/25 17:14 Height 5 ft 5 in Weight 159 lb 2 oz BMI 26.5 BP 112/66 Blood Pressure Location Rt brachial Position Sitting Respiration 14 Pulse 77 Pulse Source Pulse Oximeter Temp 98.1 F Temp Source Oral Pulse Oximetry (%) 97 Oxygen Delivery Method Room Air Intake Visit Reasons: f/u lipids, echocardiogram Intake Note: patient is scheduled for lab review Print Color Matcher Required: No Allergies No Known Allergies Allergy (Verified 06/02/25 17:13) Medication List - Last Reconciled 06/02/25 by Jerry Hahn MD ezetimibe (Zetia) 10 mg PO DAILY 90 days paroxetine HCl (Paxil) 20 mg PO DAILY 90 days Tobacco use date assessed: 03/21/25 Dental Screening Dental Screen Date: 08/02/24 HPI f/u lipids, echocardiogram HPI Details 34 y/o female presents to f/u lipids, echocardiogram. Labs drawn 05/16/25. Reviewed labs with pt. Triglycerides 97. TC 200. LDL 132. HDL 49. FHx of CAD. Echocardiogram 04/18/25 was fine. Reports anxiety. Does not currently have a therapist. 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 Current occupational exposures/hazards: Yes Cognitive needs: No Hearing needs: No Vision needs: No Questionnaire Thrive Questionnaire Date Thrive assessed: 03/21/25 I am a: Patient What is your living situation today?: I have a steady place to live Within the past 12 months, did the food you bought not last and you didn't have the money to get more?: Never true Within the past 12 months, did you worry whether your food would run out before you got money to buy more?: Never true Do you have trouble paying for medicines?: No Do you have trouble getting transportation to medical appointments?: No Do you have trouble paying your heating and electricity bill?: No Do you have trouble taking care of your child, family member or friend?: No Do you have trouble with day-to-day activities such as bathing, preparing meals, shopping, managing finances, etc.?: No Are you currently unemployed and looking for a job?: No Are you interested in more education?: No Please select the resources that you would like help with: None Currently or been in a relationship where the following occur: No concerns reported THRIVE Score: 0 ROOSEVELT-7 AMB Questionnaire ROOSEVELT-7 Date ROOSEVELT - 7 assessed: 03/21/25 Source: Developed by Drs. Jimmy Lou, Radha Ying, Philip Caban and colleagues, with an educational ryan from [employer]. Review of Systems Const Denies chills, Denies fatigue, Denies fever(s), Denies headache(s) and Denies weakness ENT Denies dizziness and Denies headache(s) Card Denies dyspnea Resp Denies cough, Denies dyspnea, Denies wheezing and Denies other (shortness of breath) Musc Denies numbness and Denies tingling Neuro Denies dizziness, Denies headache(s), Denies numbness, Denies tingling and Denies weakness Psych Reports anxiety Endo Denies fatigue Aller/Immun Denies wheezing Physical exam (Primary Care) Vital Signs: Last Vital Signs Temp 98.1 F 06/02/25 17:14 Pulse 77 06/02/25 17:14 Resp 14 06/02/25 17:14 BP 112/66 06/02/25 17:14 Pulse Ox 97 06/02/25 17:14 Oxygen Delivery Method Room Air 06/02/25 17:14 BMI result Body Mass Index 26.5 Tobacco/Smoking Status: Tobacco use Status Tobacco use date assessed 03/21/25 06/02/25 17:19 Patient Tobacco Use Status Never used Tobacco 06/02/25 17:19 e-Cigarette/Vaping Use Never Used 06/02/25 17:19 Thrive Assessment: Date of Thrive Assessment Date Thrive assessed 03/21/25 06/02/25 17:19 Currently or been in a relationship where the following occur: No concerns reported Const General: well developed; No acute distress Nutritional Appearance: well nourished Orientation/consciousness: patient oriented x3 HENMT Head: Yes normocephalic and Yes atraumatic Eyes General: appearance normal, both eyes and all related structures Pupils: Equal, round and reactive pupils present EOM: EOMs intact bilaterally Resp Effort & Inspection: normal respiratory effort Neuro General: patient oriented x3 and gait normal Cranial nerves: Yes Equal, round and reactive pupils present Psych Affect: normal affect Coding Level of Care Code Est Pt Level 3 (00917) Diagnoses High cholesterol E78.00 Family history of heart disease Z82.49 Anxiety F41.9 Assessment & Plan Assessment & Plan (1) High cholesterol: Code(s): E78.00 - Pure hypercholesterolemia, unspecified Category: Medical Plan: LDL cholesterol remains above goal Will try Zetia Continue working on a diet lower in saturated fats and cholesterol (2) Family history of heart disease: Code(s): Z82.49 - Family history of ischemic heart disease and other diseases of the circulatory system Category: Medical (3) Anxiety: Code(s): F41.9 - Anxiety disorder, unspecified Category: Medical Plan Worsening anxiety and patient notes that she has to be on Paxil Will resume Paxil We did discuss therapist but she does not feel it this will help at this time. Will follow-up in month Medications: New paroxetine HCl (Paxil) 20 mg PO DAILY 90 tabs 3RF 90 days ezetimibe (Zetia) 10 mg PO DAILY 90 tabs 3RF 90 days
[2025-06-02 17:14] VITALS: BP 112/66; PULSE 77; RESP 14; TEMP 36.7; O2SAT 97; BMI 26.5
== END 2025-06-02 17:05 ==
LOC: HO.HMCFM 16:18
PROVIDERS: PCP Family Medicine; Visit Provider Family Medicine
DX: E78.00 Pure hypercholesterolemia, unspecified (principal); Z82.49 Family history of ischemic heart disease and other diseases of the circulatory system; F41.9 Anxiety disorder, unspecified

== ENCOUNTER 2025-07-18 14:10 | Outpatient (AMB) | payer OTHER, SELFPAY ==
--- NOTE | 2025-07-18 14:32 | A.OFFPC_ITS ---
Vital Signs 07/18/25 14:39 Height 5 ft 5 in Weight 153 lb 8 oz BMI 25.5 BP 118/78 Blood Pressure Location Lt brachial Position Sitting Respiration 16 Pulse 77 Pulse Source Pulse Oximeter Temp 98.5 F Temp Source Oral Pulse Oximetry (%) 99 Oxygen Delivery Method Room Air Intake Visit Reasons: F/u Anx/Dep & Lipids Intake Note: patient here for follow up on Anxiety/Depression & Lipids Mechanical Press Operator Required: No Is last menstrual period known: Yes Last menstrual period: 06/23/25 Post menopausal: No Patient : No Allergies No Known Allergies Allergy (Verified 07/18/25 14:39) Medication List - Last Reconciled 07/18/25 by Jerry Hahn MD ezetimibe (Zetia) 10 mg PO DAILY 90 days paroxetine HCl (Paxil) 20 mg PO DAILY 90 days Tobacco use date assessed: 07/18/25 Dental Screening Dental Screen Date: 07/18/25 Did you have a dental visit in the last 12 months?: Yes Did you have a dental problem in the last 6 months where you did not have access to dental care?: No Was dental information given to patient?: Patient has dentist HPI F/u Anx/Dep & Lipids HPI Details Patient returns to follow-up anxiety and depression and lipids. Had started her on Paxil last month. Also started her on Zetia. She notes she is currently not taking zetia as she feels she is able to get her cholesterol down naturally. [facility] Social History Housing: House Patient Tobacco Use Status: Never used Tobacco e-Cigarette/Vaping Use: Never Used Second Hand Smoke Exposure: No Patient : No service: No Current occupational status: employed Current occupation: [employer] Current occupational exposures/hazards: Yes Cognitive needs: No Hearing needs: No Vision needs: No Female Reproductive History Menstrual Date of last menstrual period: 06/23/25 Questionnaire Thrive Questionnaire Date Thrive assessed: 03/21/25 I am a: Patient What is your living situation today?: I have a steady place to live Within the past 12 months, did the food you bought not last and you didn't have the money to get more?: Never true Within the past 12 months, did you worry whether your food would run out before you got money to buy more?: Never true Do you have trouble paying for medicines?: No Do you have trouble getting transportation to medical appointments?: No Do you have trouble paying your heating and electricity bill?: No Do you have trouble taking care of your child, family member or friend?: No Do you have trouble with day-to-day activities such as bathing, preparing meals, shopping, managing finances, etc.?: No Are you currently unemployed and looking for a job?: No Are you interested in more education?: No Please select the resources that you would like help with: None Currently or been in a relationship where the following occur: No concerns reported THRIVE Score: 0 ROOSEVELT-7 AMB Questionnaire ROOSEVELT-7 Date ROOSEVELT - 7 assessed: 03/21/25 Source: Developed by Drs. Jimmy Lou, Radha Ying, Philip Caban and colleagues, with an educational ryan from [employer]. Review of Systems Const Denies chills, Denies fatigue, Denies fever(s), Denies headache(s) and Denies weakness ENT Denies dizziness and Denies headache(s) Card Denies dyspnea Resp Denies cough, Denies dyspnea, Denies wheezing and Denies other (shortness of breath) Musc Denies numbness and Denies tingling Neuro Denies dizziness, Denies headache(s), Denies numbness, Denies tingling and Denies weakness Psych Denies anxiety and Denies depression Endo Denies fatigue Aller/Immun Denies wheezing Physical exam (Primary Care) Vital Signs: Last Vital Signs Temp 98.5 F 07/18/25 14:39 Pulse 77 07/18/25 14:39 Resp 16 07/18/25 14:39 BP 118/78 07/18/25 14:39 Pulse Ox 99 07/18/25 14:39 Oxygen Delivery Method Room Air 07/18/25 14:39 BMI result Body Mass Index 25.5 Tobacco/Smoking Status: Tobacco use Status Tobacco use date assessed 07/18/25 07/18/25 14:42 Patient Tobacco Use Status Never used Tobacco 07/18/25 14:35 e-Cigarette/Vaping Use Never Used 07/18/25 14:35 Thrive Assessment: Date of Thrive Assessment Date Thrive assessed 03/21/25 07/18/25 14:35 Currently or been in a relationship where the following occur: No concerns reported Const General: well developed; No acute distress Nutritional Appearance: well nourished Orientation/consciousness: patient oriented x3 HENMT Head: Yes normocephalic and Yes atraumatic Eyes General: appearance normal, both eyes and all related structures Pupils: Equal, round and reactive pupils present EOM: EOMs intact bilaterally Resp Effort & Inspection: normal respiratory effort Auscultation: clear to auscultation bilaterally Cardio Rate: regular rate Rhythm: regular rhythm Heart sounds: S1 normal heart sound present, S2 normal heart sound present, no gallops, no murmurs and no rubs Neuro General: patient oriented x3 and gait normal Cranial nerves: Yes Equal, round and reactive pupils present Psych Affect: normal affect Coding Level of Care Code Est Pt Level 3 (88391) Diagnoses Anxiety F41.9 High cholesterol E78.00 Assessment & Plan Assessment & Plan (1) Anxiety: Code(s): F41.9 - Anxiety disorder, unspecified Category: Medical Plan: Much improved Patient says ?I feel like a new person? Continue Paxil Encouraged exercise (2) High cholesterol: Code(s): E78.00 - Pure hypercholesterolemia, unspecified Category: Medical Plan: LDL cholesterol around 132. Had sent a script for Ashtyn which she says she tried but then now decided to me work harder on lifestyle changes. Will recheck lipids prior to next visit and reassess Orders: Orders Comprehensive [place]. Panel Fast Today Z00.00 - Encounter for general adult medical examination without abnormal findings Lipid Panel Today E78.00 - Pure hypercholesterolemia, unspecified, Z00.00 - Encounter for general adult medical examination without abnormal findings
[2025-07-18 14:39] VITALS: BP 118/78; PULSE 77; RESP 16; TEMP 36.9; O2SAT 99; BMI 25.5
== END 2025-07-18 15:26 | disposition home or self-care (01) ==
LOC: HO.HMCFM 14:11
PROVIDERS: PCP Family Medicine; Visit Provider Family Medicine
DX: F41.9 Anxiety disorder, unspecified (principal); E78.00 Pure hypercholesterolemia, unspecified

== ENCOUNTER 2025-11-18 08:42 | Outpatient (AMB) | payer OTHER, SELFPAY ==
--- NOTE | 2025-11-18 08:45 | MHC.PC.OV ---
Vital Signs 11/18/25 08:50 Height 5 ft 5 in BP 100/68 Blood Pressure Location Rt brachial Position Sitting Respiration 15 Pulse 86 Pulse Source Pulse Oximeter Temp 98.5 F Temp Source Temporal Artery Scan Pulse Oximetry (%) 98 Oxygen Delivery Method Room Air Intake Visit Reasons: f/u anxiety, lipids Intake Note: Erin presents in the office today for a follow up to anxiety and her cholesterol. Utilization Supervisor Required: No Is last menstrual period known: Yes Last menstrual period: 11/15/25 Post menopausal: No Patient : No Allergies No Known Allergies Allergy (Verified 11/18/25 08:47) Tobacco use date assessed: 11/18/25 Dental Screening Dental Screen Date: 11/18/25 Did you have a dental visit in the last 12 months?: Yes Did you have a dental problem in the last 6 months where you did not have access to dental care?: No Was dental information given to patient?: Patient has dentist HPI f/u anxiety, lipids HPI Details 35 y/o female presents to f/u lipids. No recent labs to review. LDL cholesterol has been in the 130s in April. She notes she would like to get back on her Zetia 10mg. [facility] Family History (Updated 11/18/25 @ 08:50 by Herlinda Mora CMA) Mother FH: mental illness Anxiety Paternal Grandmother FH: mental illness Anxiety Father FH: mental illness Depression Substance abuse Acute opioid intoxication Paternal Uncle Abuse of both oxycodone and heroin Social History (Updated 11/18/25 @ 08:50 by Herlinda Mora CMA) Housing: House Alcohol intake: never Patient Tobacco Use Status: Never used Tobacco e-Cigarette/Vaping Use: Never Used Second Hand Smoke Exposure: No Use of substances other than those prescribed or required for medical reasons: No Patient : No service: No Current occupational status: employed 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 Jimmy Lou, Radha Ying, Philip Caban and colleagues, with an educational ryan from [employer]. Review of Systems Const Denies chills, Denies fatigue, Denies fever(s), Denies headache(s) and Denies weakness ENT Denies dizziness and Denies headache(s) Card Denies dyspnea Resp Denies cough, Denies dyspnea, Denies wheezing and Denies other (shortness of breath) Musc Denies numbness and Denies tingling Neuro Denies dizziness, Denies headache(s), Denies numbness, Denies tingling and Denies weakness Psych Denies anxiety and Denies depression Endo Denies fatigue Aller/Immun Denies wheezing Physical exam (Primary Care) Vital Signs: Last Vital Signs Temp 98.5 F 11/18/25 08:50 Pulse 86 11/18/25 08:50 Resp 15 11/18/25 08:50 BP 100/68 11/18/25 08:50 Pulse Ox 98 11/18/25 08:50 Oxygen Delivery Method Room Air 11/18/25 08:50 Tobacco/Smoking Status: Tobacco use Status Tobacco use date assessed 11/18/25 11/18/25 08:52 Patient Tobacco Use Status Never used Tobacco 11/18/25 08:50 e-Cigarette/Vaping Use Never Used 11/18/25 08:50 Thrive Assessment: Date of Thrive Assessment Date Thrive assessed 03/21/25 11/18/25 08:46 Const General: well developed; No acute distress Nutritional Appearance: well nourished Orientation/consciousness: patient oriented x3 HENMT Head: Yes normocephalic and Yes atraumatic Eyes General: appearance normal, both eyes and all related structures Pupils: Equal, round and reactive pupils present EOM: EOMs intact bilaterally Resp Effort & Inspection: normal respiratory effort Auscultation: clear to auscultation bilaterally Cardio Rate: regular rate Rhythm: regular rhythm Heart sounds: S1 normal heart sound present, S2 normal heart sound present, no gallops, no murmurs and no rubs Neuro General: patient oriented x3 and gait normal Cranial nerves: Yes Equal, round and reactive pupils present Psych Affect: normal affect Coding Level of Care Code Est Pt Level 3 (96471) Diagnoses High cholesterol E78.00 Anxiety F41.9 Assessment & Plan Assessment & Plan (1) High cholesterol: Code(s): E78.00 - Pure hypercholesterolemia, unspecified Category: Medical Plan: Patient had stopped Zetia prior to last visit. She has changed her mind about the Zetia again and wants to resume it. In fact she has recently started this. Too soon to recheck lipids. Will recheck them with her next blood draw (2) Anxiety: Code(s): F41.9 - Anxiety disorder, unspecified Category: Medical Plan: Anxiety is still well controlled on Paxil Continue as prescribed Orders: Orders Lipid Panel Today Z00.00 - Encounter for general adult medical examination without abnormal findings Comprehensive [place]. Panel Fast Today Z00.00 - Encounter for general adult medical examination without abnormal findings Microalbumin, Random (w Creat) Today I10 - Essential (primary) hypertension TSH reflex Free T4 Today Z00.00 - Encounter for general adult medical examination without abnormal findings UA CC w/rflx Micro + Cult Today Z00.00 - Encounter for general adult medical examination without abnormal findings Medications: Refilled ezetimibe (Zetia) 10 mg PO DAILY 90 tabs 3RF 90 days paroxetine HCl (Paxil) 20 mg PO DAILY 90 tabs 3RF 90 days
[2025-11-18 08:50] VITALS: BP 100/68; PULSE 86; RESP 15; TEMP 36.9; O2SAT 98
== END 2025-11-18 09:15 | disposition home or self-care (01) ==
PROVIDERS: PCP Family Medicine; Visit Provider Family Medicine
DX: E78.00 Pure hypercholesterolemia, unspecified (principal); F41.9 Anxiety disorder, unspecified